=== PATIENT | male | born 1970 | race Caucasian/White ===

== ENCOUNTER 2022-04-09 13:42 | Emergency (ER) | payer MEDICAID, SELFPAY ==
[2022-04-09 13:49] VITALS: BP 155/110; PULSE 68; RESP 20; TEMP 37.1; O2SAT 94
--- NOTE | 2022-04-09 14:02 | CRLHL7_ITS ---
For Patients: As a result of the Century Cures Act, medical imaging exams and procedure reports are released immediately into your electronic medical record. You may view this report before your referring provider. If you have questions, please contact your health care provider. Indication: Cough x2 weeks Comparison: None available. Technique: Single AP view chest Findings: There is hyperinflation and chronic interstitial change. There is mildly increased interstitial markings likely representing minimal bronchial thickening. There is no dense consolidation, effusion or pneumothorax. The cardiac silhouette is mildly prominent. The bony thorax is grossly intact. Impression: Hyperinflation and chronic interstitial change with mildly increased interstitial markings likely representing mild bronchial thickening. Otherwise, no dense consolidation is appreciated. Dictated by Moisés Crum MD @ 04/09/2022 2:34:01 PM (Electronically Signed)
[2022-04-09 14:46] LABS: PCR FLU A POSITIVE PCR FLU A (Negative); PCR FLU B Negative PCR FLU B (Negative); PCR RSV POSITIVE PCR RSV (Negative)
[2022-04-09 14:47] LABS: SARS PCR* Negative SARS-CoV-2 (Negative)
[2022-04-09] MEDS: predniSONE 20 MG TABLET 60 MG PO (14:59)
[2022-04-09] MEDS: IPRAT-ALBUT 0.5-2.5 MG/3 ML NEB 1 NEB IH (14:59)
[2022-04-09 15:00] VITALS: RESP 18; O2SAT 96
[2022-04-09 15:41] VITALS: BP 141/86; PULSE 71; RESP 18; O2SAT 94
[2022-04-09 15:45] VITALS: BP 141/86; PULSE 71; RESP 18; TEMP 37.1
--- NOTE | 2022-04-09 16:40 | ED.GENADULT ---
HPI - General Adult General Date Seen: 04/09/22 Chief complaint: Shortness of Breath/Dyspnea Stated complaint: Short of Breath Time Seen by Provider: 04/09/22 13:52 Source: patient History of Present Illness HPI narrative: Patient is a 51-year-old sent from clinic for evaluation of cough. He tells me he has been feeling poorly for the past couple of weeks with cough and shortness of breath, fatigue. He thinks he has had some low-grade fevers although they have resolved over the past few days. He has not had chest pain. He has not had significant congestion. He does smoke. He went into clinic today and says he was feeling very short of breath at the time, this was making him feel anxious and he was hyperventilating. He did have a neb in clinic and says that he feels better now. He arrived here via ambulance. He is here with his roommate and friend. 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 Related Data Home Medications Medication Instructions Recorded Confirmed emtricitabine 200 mg-rilpivirine tab PO 04/09/22 25 mg-tenofovir alafenam 25 mg tablet (Odefsey) Allergies Allergy/AdvReac Type Severity Reaction Status Date / Time No Known Drug Allergies Allergy Verified 04/09/22 13:51 Review of Systems Status of ROS: Reports: 10 or more systems reviewed and unremarkable except as noted in History and below [facility] Medical History Anxiety HIV (human immunodeficiency virus infection) Hyperventilation Pneumonia Smoker Social History Smoking Status: Current some day smoker What tobacco products do you use: cigarettes Smoking packs per day: 0.25 Smoking cigarettes per day: 5.0 Do you use any of these nicotine containing products: None How often do you have a drink containing alcohol: monthly or less AUDIT-C Alcohol total score: 1 Non-prescribed substance use: marijuana (any form) Non-prescribed substance use details: few x/week Exam Narrative: Exam Narrative: Vital signs as noted above. In general, an alert, well-appearing patient. Breathing easily. Head: Normocephalic, atraumatic. Eyes: Pupils are equal reactive. Extraocular movements are full. Conjunctivae are normal. ENT: Mucous membranes are moist. Throat is normal. Neck: Supple without lymphadenopathy. Heart: Regular rate and rhythm. No murmur or rub. Lungs: Patient has scattered wheezes in both bases as well as some crackles. Breath sounds are somewhat diminished bilaterally Abdomen: Soft and nontender. No organomegaly. Extremities: Well perfused. No edema. No calf tenderness. Pulses intact. Neurologic: Patient is alert and oriented to person and place. Speech is fluent. Face is symmetric. Moves all extremities equally. Affect: Normal. Skin: Warm and dry. Well perfused. Const: Vital Signs, click to edit/add: Vital Signs - 24 hr 04/09/22 13:49 04/09/22 15:41 04/09/22 15:00 Temperature 98.7 F Pulse Rate [Left P ulse Oximeter] 68 71 Respiratory Rate 20 18 18 Blood Pressure [Le ft Upper Arm] 155/110 H 141/86 H Pulse Oximetry 94 94 96 Oxygen Delivery Me thod Room Air Room Air Room Air 04/09/22 15:45 Temperature 98.7 F Pulse Rate [Left P ulse Oximeter] 71 Respiratory Rate 18 Blood Pressure [Le ft Upper Arm] 141/86 H Pulse Oximetry Oxygen Delivery Me thod Documenting provider has reviewed patient's vital signs: yes Course Course Hospital Course: One-view chest x-ray by my review does not show evidence of lobar infiltrate, pleural effusion, pulmonary edema. Final radiology report is as follows: Impression: Hyperinflation and chronic interstitial change with mildly increased interstitial markings likely representing mild bronchial thickening. Otherwise, no dense consolidation is appreciated. I did do viral testing and he is positive for influenza as well as RSV today. I gave him a 2nd neb here as well as some prednisone. I do think part of this is related to COPD and exacerbation there. Also discussed with him that his viral tests which are positive are contributing to him feeling poorly although I doubt he has acute influenza given that he has been feeling sick for a couple of weeks. I am going to treat him with steroids, albuterol as well as azithromycin for COPD exacerbation. Discussed that it still may take a few days of 2 week or so for him to start feeling back to normal, but I do think we should be able to help him symptomatically. Clinically, he looks well at this time. He is breathing easily, feels significantly better, I think it is reasonable to discharge him home. Primary care follow-up if not improving over the coming week. Return for acute worsening, new symptoms such as fever. Vital Signs Vital signs: Initial Vital Signs Temperature 98.7 F 04/09/22 13:49 Temperature Source Temporal Artery Scan 04/09/22 13:49 Pulse Rate 68 04/09/22 13:49 Respiratory Rate 20 04/09/22 13:49 Blood Pressure 155/110 H 04/09/22 13:49 Blood Pressure Mean 125 04/09/22 13:49 Blood Pressure Position Sitting 04/09/22 13:49 Pulse Oximetry 94 04/09/22 13:49 Oxygen Delivery Method 04/09/22 13:49 Vital Signs Temperature 98.7 F 04/09/22 13:49 Pulse Rate 68 04/09/22 13:49 Respiratory Rate 20 04/09/22 13:49 Blood Pressure 155/110 H 04/09/22 13:49 Pulse Oximetry 94 04/09/22 13:49 Oxygen Delivery Method 04/09/22 13:49 Temperature 98.7 F 04/09/22 15:45 Pulse Rate 71 04/09/22 15:45 Respiratory Rate 18 04/09/22 15:45 Blood Pressure 141/86 H 04/09/22 15:45 Pulse Oximetry 94 04/09/22 15:41 Oxygen Delivery Method 04/09/22 15:41 Medical Decision Making Lab Data Labs: Lab Results 04/09/22 Range/Units 13:53 SARS-CoV-2 (PCR) Negative SARS-CoV-2 (Negative) Influenza Type A (PCR) POSITIVE PCR FLU A A (Negative) Influenza Type B (PCR) Negative PCR FLU B (Negative) RSV (PCR) POSITIVE PCR RSV A (Negative) Discharge Plan Discharge Clinical Impression: Influenza A, RSV (respiratory syncytial virus infection), COPD exacerbation Patient Disposition: Home, Self-Care Condition: Improved Instructions: Respiratory Syncytial Virus (ED), Influenza (DC), Chronic Bronchitis (ED) Additional Instructions: Medications as prescribed. Follow-up with your clinic doctor next week for recheck. Return to the emergency department for worsening respiratory symptoms or high fevers. Prescriptions: No Action Odefsey 200-25-25 mg tablet PO Follow Up/Referrals: Provider,Not a Local [Primary Care Provider] - Stand Alone Forms: [employer] Info Instructions
== END 2022-04-09 15:45 | disposition home or self-care (01) ==
PROVIDERS: Emergency Provider Emergency Medicine
DX: J44.1 Chronic obstructive pulmonary disease with (acute) exacerbation (principal); J09.X2 Influenza due to identified novel influenza A virus with other respiratory manifestations; B97.4 Respiratory syncytial virus as the cause of diseases classified elsewhere
CPT/HCPCS: 71045; 87502; 87634; 87635; 94640; 99284; J7512